=== PATIENT | male | born 1960 | race Caucasian/White ===

== ENCOUNTER 2018-06-04 13:56 | Inpatient (IN) | payer OTHER ==
[~2018-06-04] VITALS: Ht 175.3 cm; Wt 108.9 kg
[~2018-06-04 13:56] MED LIST: COLCHICINE 0.60.6 M1 PO; INDOMETHACIN 2525 MG PO; INDOMETHACIN 5050 M1 PO; LISINOPRIL10 MG PO; MEDROL DOSPAK21 TA1 PO; MEDROLDOSEPACK PO; NOHOMEMEDICATIONS; PERCOCET 5-3251 EACH PO; ULTRAM 50MG TAB50 MG PO
[2018-06-04 14:05] VITALS: BP 141/98
[2018-06-04] MEDS ORDERED: HYDROCHLOROTH12.5 M1 PO (14:08)
[2018-06-04 14:21] LABS: ABSOLUTE BASOPHILS 0.1 thou/uL (0.0-0.2); ABSOLUTE EOSINOPHILS 0.1 thou/uL (0.0-0.7); ABSOLUTE LYMPHOCYTES 3.3 thou/uL (0.8-5.3); ABSOLUTE MONOCYTES 0.8 thou/uL (0.0-1.2); ABSOLUTE NEUTROPHILS 3.4 thou/uL (1.6-8.1); BASOPHILS 1.2 %; EOSINOPHILS 1.2 %; HEMATOCRIT 52.7 % (42.0-52.0); HEMOGLOBIN 17.8 gm/dL (14.0-18.0); LYMPHOCYTES 42.7 %; MCH 30.4 pg (26.0-34.0); MCHC 33.8 g/dL (28.0-37.0); MCV 89.9 fL (80.0-100.0); MONOCYTES 10.7 %; MPV 8.7 fl. (7.2-11.1); NUCLEATED RBCS 0 /100WBC; PLATELET COUNT* 215 thou/uL (150-400); POLYS 44.2 %; RBC 5.87 mil/uL (4.50-6.00); WBC 7.7 thou/uL (4.0-11.0)
--- NOTE | 2018-06-04 14:24 | NUR ---
PT INSTRUCTED ON TRYING THE VALSALVA WITH NO SUCCESS.
[2018-06-04 14:30] LABS: ANION GAP 12 mmol/L (7-16); BUN 29 mg/dL (7-18); CALCIUM 9.2 mg/dL (8.5-10.1); CHLORIDE 99 mmol/L (98-107); CO2 25 mmol/L (21-32); CREATININE 1.6 mg/dL (0.6-1.3); GLUCOSE 114 mg/dL (70-99); POTASSIUM 4.5 mmol/L (3.5-5.1); SODIUM 136 mmol/L (136-145)
[2018-06-04 14:35] LABS: APTT 28.9 Seconds (25.0-31.3); INR 1.1; PROTIME 10.5 Seconds (9.20-11.50)
[2018-06-04] MEDS ORDERED: NORVASC5 MG PO (14:35)
[2018-06-04 14:51] LABS: ALBUMIN 4.4 g/dL (3.4-5.0); ALKALINE PHOSPHATASE 70 U/L (46-116); CK-MB MASS 0.5 ng/mL (<0.5-3.6); LIPASE 217 U/L (73-393); MAGNESIUM 1.8 mg/dL (1.8-2.4); NT-PRO BRAIN NAT PEPTIDE 1535 pg/mL (<300); SGOT 22 U/L (15-37); SGPT 36 U/L (30-65); TOTAL BILIRUBIN 1.4 mg/dL (<0.1-1.0); TOTAL PROTEIN 8.3 g/dL (6.4-8.2); TROPONIN-I LEVEL <0.06 ng/mL (<0.06)
[2018-06-04 14:59] VITALS: BP 149/92
[2018-06-04 15:20] VITALS: BP 144/82
--- NOTE | 2018-06-04 16:51 | EKG ---
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: ANGEL : 1960 Requested By: Jared Nichole Order Number: [id number] MD: Addison Estrada Measurements Intervals [place] Rate: 176 P: [place]: QRS: -38 QRSD: 93 T: 37 QT: 288 QTc: 493 Interpretive Statements Atrial fibrillation with rapid V-rate Left axis deviation Low voltage, extremity leads No previous ECG available for comparison Electronically Signed On 06-04-2018 16:50:42 CDT by Addison Estrada [email or web address] <ELECTRONICALLY SIGNED> By: Addison Estrada MD, [facility] 06/04/18 1650 1402 1402 Addison Estrada MD, [facility] /EPI
--- NOTE | 2018-06-04 17:47 | NUR ---
PT ADMITTED TO ROOM 224 VIA CART FROM ED AT APPROXIMATELY 1520 WITH AFIB RVR. REPORT RECEIVED FROM FABIANA LANG. PT ORIENTED TO ROOM AND CALL LIGHT. PT AND SON AT BEDSIDE WITH PT. ADMISSION ASSESSMENT AND HISTORY COMPLETED. REFER TO CHARTING. PT SCREENED NEGATIVE FOR SEPSIS. FALL AGREEMENT SIGNED. PT HAS CARDIZEM INFUSING AT 10ML/HR. RATE BETWEEN 90-110. BLOOD PRESSURE STABLE. PT STARTED ON RHYTHMOL AND XARELTO PER DR CALVO. POSSIBLE SOO/CV IN AM. PT A&0X4, DENIES ANY PAIN OR SHORTNESS OF BREATH. 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 ON RA SAT UPPER 90'S. PT UP SBA TO BATHROOM. MEDICATIONS PER DEC. PT REPOSITIONS SELF. HOURLY ROUNDING OBSERVED. BED IN LOW POSITION. CALL LIGHT WITHIN REACH. WILL CONTINUE PLAN OF CARE.
[2018-06-04 19:40] VITALS: BP 129/80
[2018-06-05] VITALS (18 sets, daily range): BP systolic 84–143; BP diastolic 48–97
--- NOTE | 2018-06-05 06:36 | NUR ---
ASSUMED CARE OF PT AT 1900. PT IS ALERT AND ORIENTED. VSS. PERRLA. NO COMPLAINTS OF PAIN. UP AD NELLIE. PT IS IN A FIB ON THE TELEMETRY. PT IS ON 10 MG/HR OF CARDIZEM. PT IS SLEEPING QUIETLY IN BED. RESPIRATIONS ARE EVEN AND NONLABORED. WILL CONTINUE TO MONITOR PT.
--- NOTE | 2018-06-05 09:00 | NUR ---
ASSUMED CARE OF PT AT 0730. PT RESTING IN BED. SON AT BEDSIDE. PT A&0X4, DENIES ANY PAIN OR SHORTNESS OF BREATH AT THIS TIME. PT STATES HE IS ANXIOUS AND NERVOUS ABOUT POSSIBLE CARDIOVERSION TODAY. 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 ON RA SAT UPPER 90'S. PT UP AD NELLIE IN ROOM. CARDIZEM INFUSING AT 10ML/HR. BLOOD PRESSURE STABLE. HEART RATE BELOW 100. PT GOAL FOR TODAY IS TO CONVERT TO SR OR SOO/CARDIOVERSION THIS AFTERNOON. AM ASSESSMENT CHARTED. MEDICATIONS PER DEC. PT REPOSITIONS SELF. HOURLY ROUNDING OBSERVED. BED IN LOW POSITION. CALL LIGHT WITHIN REACH. WILL CONTINUE PLAN OF CARE.
--- NOTE | 2018-06-05 12:09 | EKG ---
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: : 1960 Requested By: Edwin Allen Order Number: [id number] Jennifer MD: Manpreet Calhoun Measurements Intervals [place] Rate: 99 P: [place]: QRS: -8 QRSD: 151 T: 27 QT: 353 QTc: 453 Interpretive Statements Atrial fibrillation low voltage Nonspecific intraventricular conduction delay Compared to ECG 06/04/2018 14:02:55 rate slowed Electronically Signed On 06-05-2018 12:09:00 CDT by Manpreet Calhoun [email or web address] <ELECTRONICALLY SIGNED> By: Manpreet Calhoun MD, [facility] 06/05/18 1209 1111 1111 Manpreet Calhoun MD, [facility] /EPI
--- NOTE | 2018-06-05 13:53 | NUR ---
MET WITH PT AND TO DISCUSS HOME SITUATION/DC PLANNING. PT LIVES WITH . 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 USES NO EQUIPMENT. TO HAVE SOO/CARDIOVERSION TODAY. PT DENIES DC NEEDS. WILL FOLLOW
--- NOTE | 2018-06-05 15:47 | NUR ---
PT TRANSITIONED TO PO CARDIZEM. REFER TO EMAR. CARDIOLOGY HERE TO SEE PT AND PLAN FOR SOO/CARDIOVERSION THIS AFTERNOON. PT FAMILY HAS MANY QUESTIONS REGARDING SOO/CARDIOVERSION. EDUCATION GIVEN TO PT. CARDIOLOGY NOTIFIED AND DR KOEHLER HERE TO SPEAK WITH FAMILY AND ANSWER ALL QUESTIONS/CONCERNS. CONSENT SIGNED AND PLACED IN FRONT OF CHART. PT DOWN FOR SOO/CARDIOVERSION AT APPROXIMATELY 1500.
--- NOTE | 2018-06-05 16:52 | TEE ---
[place] [address] TRANSESOPHAGEAL ECHOCARDIOGRAM Name: ROSHNI FERNANDEZ Room: [address] IN [facility]#: [id number] Admission: 06/04/18 Attend Phys: Edwin Allen Discharge: Date of : 56 Date of Service: 06/05/18 1652 Report #: [id number] THIS REPORT FOR: //name// APPROVED REPORT Study performed: 06/05/2018 14:48:02 EXAM: Transesophageal Echocardiogram Patient Location: In-Patient Room #: [facility] Status: routine BSA: 2.28 HR: 117 bpm BP: 143/89 mmHg Rhythm: Atrial Fibrillation Indications Atrial Fibrillation Echo Enhancing Agent Indication: Rule out Shunt Agent(s) / Amount(s) Used: Agitated Saline 20 cc Procedure After obtaining informed consent, patient underwent transesophageal echo in the Facility Assistant Holding. Type of Sedation : Conscious Sedation Sedation was administered by Valerie Fagan RN. Sedation start time: 1500 Case end Time: 1527 Sedation was achieved intravenously with: Versed (6) Fentanyl (100) Transesophageal probe was inserted and advanced into esophagus without difficulty by Manpreet Calhoun MD, FACC. Echo enhancement indication: R/O Septal defect. Echo enhancement agent administered: Agitated Saline The SOO was performed without complications. Synchronized Cardioversion attempted: Successful Synchronized Cardioversion acheived with 300 Joules after 1 attempt(s). Rhythm following Synchronized Cardioversion: Normal Sinus Rhythm Throughout the procedure, the blood pressure, pulse oximetry, cardiac rhythm, and rate were monitored. The patient tolerated the procedure without adverse effects. Recovery from conscious sedation was uneventful [place] [address] TRANSESOPHAGEAL ECHOCARDIOGRAM Name: ROSHNI FERNANDEZ Room: [address]#: [id number] Admission: 06/04/18 Attend Phys: Edwin Allen Discharge: Date of : 56 Date of Service: 06/05/18 1652 Report #: [id number] Left Ventricle The left ventricle is normal size. There is normal LV segmental wall motion. There is normal left ventricular wall thickness. Left ventricular systolic function is normal. The left ventricular ejection fraction is within the normal range. LVEF is 50-55%. Right Ventricle The right ventricle is normal size. The right ventricular systolic function is normal. Atria Left atrium is mildly dilated. No thrombus is visualized in the left atrium or appendage. Interatrial septum is intact without evidence of ASD or PFO. The right atrium size is normal. Aortic Valve The aortic valve is normal in structure. No aortic regurgitation is present. There is no aortic valvular stenosis. Mitral Valve The mitral valve is normal in structure. Mild mitral regurgitation. No evidence of mitral valve stenosis. Tricuspid Valve The tricuspid valve is normal in structure. There is no tricuspid valve regurgitation noted. Pulmonic Valve The pulmonary valve is normal in structure. There is no pulmonic valvular regurgitation. Great Vessels The aortic root is normal in size. Pericardium There is no pericardial effusion. <Conclusion> LVEF is 50-55%. Left atrium is mildly dilated. No thrombus is visualized in the [place] [address] TRANSESOPHAGEAL ECHOCARDIOGRAM Name: ROSHNI FERNANDEZ Room: [address] IN .R.#: [id number] Admission: 06/04/18 Attend Phys: Edwin Allen Discharge: Date of : 56 Date of Service: 06/05/181651 Report #: [id number] Mild mitral regurgitation. successful cardioversion of atrial fibrillation to sinus rhythm <ELECTRONICALLY SIGNED> By: Manpreet Calhoun MD, FACC 06/05/181651 51 51 Manpreet Calhoun MD, FACC /INF
--- NOTE | 2018-06-05 17:30 | NUR ---
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 RATE IN THE 60'S. PT SLEEPY UPON ARRIVAL BACK TO UNIT, BUT EASILY AROUSABLE. BLOOD PRESSURE CHARTED. 90'S/50'S. KEREN MARTINES'Nabil. REFER TO EMAR. FAMILY AT BEDSIDE SAT THIS TIME. PT DENIES ANY PAIN OR SHORTNESS OF BREATH. PROGRESSING TOWARDS GOALS. POSSIBLE DISCHARGE HOME TOMORROW 06/06. MEDICATIONS PER DEC. PT REPOSITIONS SELF. HOURLY ROUNDING OBSERVED. BED IN LOW POSITION. CALL LIGHT WITHIN REACH. WILL CONTINUE PLAN OF CARE.
--- NOTE | 2018-06-05 22:52 | NUR ---
ASSUMED CARE OF PT AT 1900. PT IS ALERT AND ORIENTED. VSS. PERRLA. NO COMPLAINTS OF PAIN. STEADY GAIT. UP AD NELLIE. PT IS IN SINUS RYTHM ON THE TELEMETRY. PT IS RESTING COMFORTABLY IN BED. RESPIRATIONS ARE EVEN AND NONLABORED. WILL CONTINUE TO ASKID4E PT.
[2018-06-06] VITALS: BP 98/65; BP 99/66
[2018-06-06 08:15] VITALS: BP 115/69
--- NOTE | 2018-06-06 10:59 | NUR ---
ASSUMED PT CARE AT 0730, FULL ASSESMENT DONE CHARTED. PT A/O X4, C/O SOME ARTHRITIS PAIN, REQUESTING TYLENOL. DENIES CHEST PAIN, VSS, SR/BBB ON THE MONITOR. CARDIOLOGY S/O POSSIBLE DC TODAY. WILL CONTINUE WITH PLAN OF CARE.
[2018-06-06 12:01] VITALS: BP 142/88
[2018-06-06] MEDS ORDERED: XARELTO20 MG PO (12:34)
[2018-06-06] MEDS ORDERED: PROPAFENONE 15150 MG PO (12:35)
[2018-06-06 12:36] VITALS: BP 142/88
--- NOTE | 2018-06-06 13:38 | NUR ---
pt discharged home. was given discharge education and scripts, pt and verbalized understanding of education. pt left unit with staff at approx 1335 with all belongings.
--- NOTE | 2018-06-12 12:53 | CON ---
[address] [address] CONSULTATION Name: ROSHNI FERNANDEZ Room: [address] IN .R.#: [id number] Admission: 06/04/18 Attend Phys: Nabil Head Discharge: 06/06/18 Date of : 56 Report #: [id number] THIS REPORT FOR: //name// CC: Manpreet Allen DATE OF SERVICE: 06/04/2018 INPATIENT CONSULTATION PRIMARY CARE PHYSICIAN: Manpreet Carmen M.D. CHIEF COMPLAINT: Weakness, fatigue and shortness of breath. HISTORY OF PRESENT ILLNESS: The patient is a 58-year-old man who presented with atrial fibrillation with heart rates in the 160s to 170s in the Emergency Room. He had been having 3-7 days of increasing shortness of breath and occasional chest pressure. The chest pressure occurs with activity and resolves in 5 minutes with rest. He was placed on IV Cardizem and still remains in atrial fibrillation, with heart rates in the 120s to 130s. He denies any sudden onset of symptoms, but progressively has been short of breath over the last several days. He denies syncope or presyncope. He has no neuro symptoms of visual changes, slurred speech or extremity numbness or weakness. He denies syncope or near syncope. There is no record of seizures. PAST MEDICAL HISTORY: He has a long-standing history of high blood pressure, but it has been fairly well controlled with moderate therapy. He also has a history of gout. SOCIAL HISTORY: Nonsmoker and rarely drinks. FAMILY HISTORY: Positive for coronary artery disease. Father had bypass surgery. MEDICATIONS: Medications at home include the following: Lisinopril, colchicine and hydrochlorothiazide. The lisinopril dose of 10 mg daily and hydrochlorothiazide 12.5 mg daily. ALLERGIES: He has [place] [address] CONSULTATION Name: ROSHNI FERNANDEZ Tete Room: [address]#: [id number] Admission: 06/04/18 Attend Phys: Nabil Head Discharge: 06/06/18 Date of : 56 Report #: [id number] REVIEW OF SYSTEMS: GASTROINTESTINAL: No abdominal pain, nausea, vomiting, hematemesis or melena. GENITOURINARY: No dysuria or hematuria. NEUROLOGIC: As above. No headaches, blurry vision, slurred speech or visual changes. SKIN: No rashes. MUSCULOSKELETAL: Edema. CARDIOVASCULAR: Positive chest discomfort. Positive dyspnea with exertion. Positive palpitations. SKIN: No rashes. PHYSICAL EXAMINATION: VITAL SIGNS: Blood pressure on presentation 141/98, pulse is 100% on room air and respiratory rate is 18. Weight is 250 pounds. GENERAL: This is a pleasant, moderately obese, middle-aged male, who is alert, oriented, in no apparent distress. NECK: Supple. No jugular venous distention. CARDIOVASCULAR EXAMINATION: Irregular, tachycardic. LUNGS: Clear to auscultation. ABDOMEN: Soft, nontender. EXTREMITIES: There is trace amount of pretibial edema. NEUROLOGIC: There are no focal deficits. PSYCHIATRIC: The patient has appropriate mood and affect. DIAGNOSTIC DATA: Electrocardiogram demonstrates atrial fibrillation with rapid ventricular response and nonspecific ST-segment abnormalities. LABORATORY DATA: Sodium is 136, potassium is 4.5, chloride 99, CO2 of 25, BUN is 29, creatinine is 1.6 and GFR is 44. AST is 22, ALT is 36. Troponin I is 0.06. NT-proBNP is 1535. Lipase 217. Hemoglobin 17.8, white blood cell count 7.7 and platelet count is 215,000. INR is 1.1. Chest x-ray shows heart size upper limits of normal. IMPRESSION AND PLAN: 1. Paroxysmal atrial fibrillation. He presented to his primary care doctor's office with increasing shortness of breath and was noted to be in atrial fibrillation. On IV Cardizem in the Emergency Room, he has not converted. I will add oral antiarrhythmic therapy with propafenone on top of IV Cardizem. If he does not convert by the morning time, we will plan for a SOO-guided cardioversion. For the time being, as he likely will require cardioversion, we will start him on Xarelto 20 mg daily, while we ascertain his cardiovascular stroke risk. 2. Chest discomfort. He should probably have an outpatient [place] [address] CONSULTATION Name: ROSHNI FERNANDEZ Room: [address]#: [id number] Admission: 06/04/18 Attend Phys: Nabil Head Discharge: 06/06/18 Date of : 56 Report #: [id number] point given his family history of heart disease. 3. Hypertension. We may need to switch him from oral lisinopril to Cardizem. <ELECTRONICALLY SIGNED> By: Addison Estrada MD, FACC 06/12/18 1253 1509 0421Addison Estrada MD, FACC /nt
== END 2018-06-06 13:35 | disposition home or self-care (01) | DRG 683 ==
LOC: M.ERS 13:56 → M.TBA-ER 14:40 → M.2W 14:40
PROVIDERS: Family Medicine; ADMIT Internal Medicine
PROC: B24BZZ4 Ultrasonography of Heart with Aorta, Transesophageal (ICD-10-PCS; principal; 2018-06-05)
PROC: 5A2204Z Restoration of Cardiac Rhythm, Single (ICD-10-PCS; principal; 2018-06-05)
DX: N17.9 Acute kidney failure, unspecified (principal); D68.59 Other primary thrombophilia; I48.0 Paroxysmal atrial fibrillation; I12.9 Hypertensive chronic kidney disease with stage 1 through stage 4 chronic kidney disease, or unspecified chronic kidney disease; N18.3 Chronic kidney disease, stage 3 (moderate); M10.9 Gout, unspecified; E78.5 Hyperlipidemia, unspecified; E66.9 Obesity, unspecified; Z68.35 Body mass index [BMI] 35.0-35.9, adult; Z79.899 Other long term (current) drug therapy; Z82.49 Family history of ischemic heart disease and other diseases of the circulatory system; Z83.3 Family history of diabetes mellitus

== ENCOUNTER → 2018-09-03 | Outpatient (CLI) | payer OTHER ==
[~2018-09-03] VITALS: Ht 175.3 cm; Wt 108.9 kg
[2018-09-03] VITALS (8 sets, daily range): BP systolic 120–142; BP diastolic 66–89
[~2018-09-03] MED LIST changes: +ASPIR 8181 MG PO; +ATORVASTATIN CA40 MG PO; +BRILINTA90 MG PO; +CARTIA XT180 M1 PO; +HYDROCHLOROTH12.5 M1 PO; +NORVASC5 MG PO; +PROPAFENONE 15150 MG PO; +XARELTO20 MG PO
[2018-09-03 14:25] LABS: HEMATOCRIT 45.2 % (42.0-52.0); HEMOGLOBIN 15.3 gm/dL (14.0-18.0); MCH 30.9 pg (26.0-34.0); MCHC 33.8 g/dL (28.0-37.0); MCV 91.5 fL (80.0-100.0); MPV 8.1 fl. (7.2-11.1); RBC 4.94 mil/uL (4.50-6.00); WBC 7.7 thou/uL (4.0-11.0)
[2018-09-03 14:30] LABS: ANION GAP 11 mmol/L (7-16); APTT 31.6 Seconds (25.0-31.3); BUN 24 mg/dL (7-18); CALCIUM 9.4 mg/dL (8.5-10.1); CHLORIDE 101 mmol/L (98-107); CO2 25 mmol/L (21-32); CREATININE 1.7 mg/dL (0.6-1.3); GLUCOSE 108 mg/dL (70-99); POTASSIUM 4.8 mmol/L (3.5-5.1); PROTIME 10.5 Seconds (9.20-11.50); SODIUM 137 mmol/L (136-145)
[2018-09-03 14:35] LABS: ALBUMIN 3.9 g/dL (3.4-5.0); ALKALINE PHOSPHATASE 98 U/L (46-116); CHOLESTEROL 151 mg/dL (<200); HDL CHOLESTEROL 30 mg/dL (>40); LDL CHOLESTEROL 74 mg/dL (<100); SGOT 15 U/L (15-37); SGPT 23 U/L (30-65); TOTAL PROTEIN 8.2 g/dL (6.4-8.2); TRIGLYCERIDE 237 mg/dL (<150); VLDL 47 mg/dL (<40)
[2018-09-03 14:36] LABS: SERUM ASSESSMENT Clear
--- NOTE | 2018-09-03 16:31 | EKG ---
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: [facility] : 1960 Requested By: Addison Estrada Order Number: [id number] Reading MD: Addison Estrada Measurements Intervals [place] Rate: 60 P: 14 MS: 199 QRS: -34 QRSD: 99 T: 17 QT: 422 QTc: 422 Interpretive Statements Sinus rhythm Probable inferior infarct, old Compared to ECG 06/05/2018 11:11:52 Myocardial infarct finding now present Atrial fibrillation no longer present Intraventricular conduction delay no longer present Electronically Signed On 09-03-2018 16:31:25 [place] by Addison Estrada [email or web address] <ELECTRONICALLY SIGNED> By: Addison Estrada MD, FAC 09/03/18 1631 1441 1441 Addison Estrada MD, [facility] /EPI
--- NOTE | 2018-09-05 16:17 | CARD ---
[address] [address] CARDIAC CATH REPORT Name: ROSHNI FERNANDEZ Room: [facility]#: [id number] Admission: 09/03/18 Attend Phys: Addison Estrada MD Discharge: Date of : 56 Report #: [id number] THIS REPORT FOR: //name// APPROVED REPORT Study performed: 09/03/2018 18:04:50 Patient Details Patient Status: Out-Patient Room #: The patient is a 58 year-old male Event Personnel Addison Estrada Energy Risk Management Analyst, Velma Mo RN Glove Maker, Barrera Correa (R) Monitor, Tejal Mason MIXER CRANE OPERATOR Scrub Procedures Performed Left Heart Cath w/or w/o Coronaries Procedure Narrative A Slender Glidesheath sheath was inserted into the right radial artery. Coronary angiography was performed using coronary diagnostic catheters. The right coronary system was accessed and visualized with a Diagnostic DCR: [place] 4.0 5fr catheter. The left coronary system was accessed and visualized with a Diagnostic JL 3.5 6fr catheter. The left ventricle was accessed and visualized with a Diagnostic Angled pig catheter. Left ventricular/Aortic Valve gradient assessed via catheter pullback. Closure device was deployed with a Fr Vasc-Band Lng 27cm. Intraoperative Conscious Sedation Sedation start time: 18:35 Case end Time: 19:08 Fentanyl 25 mcg Versed 2 mg Fluoro Time: 13.1 minutes Dose: DAP 455254 cGycm2 2225 mGy Contrast Type and Amount: Visipaque 290 ml Coronary Angiography The patient's coronary anatomy is co- dominant. Diagnostic Cath Left Main mild 10% taper distally LAD proximal 70-75 % stenosis, long mid 80%, [place] [address] CARDIAC CATH REPORT Name: REBECCAROSHNI Tete Room: [facility]#: [id number] Admission: 09/03/18 Attend Phys: Addison Estrada MD Discharge: Date of : 56 Report #: [id number] vessel, diffuse 70-90% Diagonal 1 medium sized ostial 90% Diagonal 2 proximal 90% Circumflex long 70%mid body stenosis OM1 subtotally occluded L PDA 40-50% collaterals given to rca pda Right Coronary proximally occluded R PDA small Left Ventriculography The left ventricle is normal in size with normal contractility. The left ventricular ejection fraction is estimated to be 50-55%. Left ventricular wall motion abnormalities are present. There is no mitral insufficiency. inferior wall at the base is mildly hypokinetic Hemodynamics The aortic pressure is 103/65 mmHg with a mean of 81 mmHg. The left ventricular pressure is 95/0 mmHg with a mean of mmHg. The left ventricular end diastolic pressure is 5 mmHg. Conclusion 1. severe multivessel CAD 2. chronically occluded but partially collateralized RCA 3. normal LV function Recommendations Aggressive Medical Therapy CABG <ELECTRONICALLY SIGNED> By: Addison Estrada MD, FACC 09/05/181615 15 15Addison Estrada MD, FACC /INF
== END | disposition home or self-care (01) ==
LOC: M.CL 13:10
PROVIDERS: Internal Medicine Cardiovascular Disease
DX: I25.10 Atherosclerotic heart disease of native coronary artery without angina pectoris (principal); I25.82 Chronic total occlusion of coronary artery; I10 Essential (primary) hypertension; E78.5 Hyperlipidemia, unspecified; M10.9 Gout, unspecified; I48.91 Unspecified atrial fibrillation; Z79.82 Long term (current) use of aspirin; Z95.1 Presence of aortocoronary bypass graft; Z79.899 Other long term (current) drug therapy; Z79.01 Long term (current) use of anticoagulants

== ENCOUNTER 2018-10-02 08:55 | Observation (INO) | payer OTHER ==
[~2018-10-02] VITALS: Ht 175.3 cm; Wt 108.9 kg
[2018-10-02] VITALS (17 sets, daily range): BP systolic 101–159; BP diastolic 49–87
[~2018-10-02 08:55] MED LIST changes: -ASPIR 8181 MG PO; -ATORVASTATIN CA40 MG PO; -BRILINTA90 MG PO; -CARTIA XT180 M1 PO
[2018-10-02] MEDS ORDERED: ATORVASTATIN CA40 MG PO (09:28)
[2018-10-02] MEDS ORDERED: CARTIA XT180 M1 PO (09:29)
[2018-10-02 09:35] LABS: ABSOLUTE BASOPHILS 0.1 thou/uL (0.0-0.2); ABSOLUTE EOSINOPHILS 0.2 thou/uL (0.0-0.7); ABSOLUTE LYMPHOCYTES 2.3 thou/uL (0.8-5.3); ABSOLUTE MONOCYTES 0.7 thou/uL (0.0-1.2); ABSOLUTE NEUTROPHILS 4.5 thou/uL (1.6-8.1); BASOPHILS 1.3 %; HEMATOCRIT 48.7 % (42.0-52.0); HEMOGLOBIN 16.6 gm/dL (14.0-18.0); LYMPHOCYTES 29.8 %; MCHC 34.1 g/dL (28.0-37.0); MCV 93.9 fL (80.0-100.0); MONOCYTES 9.5 %; MPV 8.6 fl. (7.2-11.1); NUCLEATED RBCS 0 /100WBC; PLATELET COUNT* 283 thou/uL (150-400); POLYS 57.4 %; RBC 5.19 mil/uL (4.50-6.00); RDW-CV 13.4 % (10.5-14.5); WBC 7.9 thou/uL (4.0-11.0)
[2018-10-02 09:41] LABS: ANION GAP 10 mmol/L (7-16); BUN 29 mg/dL (7-18); CALCIUM 9.6 mg/dL (8.5-10.1); CHLORIDE 101 mmol/L (98-107); CO2 26 mmol/L (21-32); CREATININE 1.7 mg/dL (0.6-1.3); GLUCOSE 123 mg/dL (70-99); POTASSIUM 4.7 mmol/L (3.5-5.1); SODIUM 137 mmol/L (136-145)
[2018-10-02 09:46] LABS: ALBUMIN 4.2 g/dL (3.4-5.0); ALKALINE PHOSPHATASE 102 U/L (46-116); CHOLESTEROL 153 mg/dL (<200); HDL CHOLESTEROL 29 mg/dL (>40); LDL CHOLESTEROL 71 mg/dL (<100); SGOT 16 U/L (15-37); SGPT 27 U/L (30-65); TC:HDL 5.3 Ratio (Not establshd); TOTAL BILIRUBIN 0.7 mg/dL (<0.1-1.0); TOTAL PROTEIN 8.8 g/dL (6.4-8.2); TRIGLYCERIDE 267 mg/dL (<150); VLDL 53 mg/dL (<40)
[2018-10-02 09:49] LABS: SERUM ASSESSMENT Clear
[2018-10-02 09:51] LABS: APTT 31.7 Seconds (25.0-31.3); PROTIME 10.6 Seconds (9.20-11.50)
--- NOTE | 2018-10-02 11:46 | EKG ---
[place] [address] ELECTROCARDIOGRAM REPORT Name: ROSHNI FERNANDEZ Room: [facility]#: [id number] Admission: 10/02/18 Attend Phys: Manpreet Calhoun MD, F Discharge: Date of : 56 Report #: [id number] THIS REPORT FOR: //name// [facility] Test Date: 2018-10-02 Test Time: 09:30:22 Pat Name: ROSHNI EVAReanna Department: Room: Gender: Retinal Angiographer: [facility] : 1960 Requested By: Manpreet Calhoun Order Number: [id number] Jennifer MD: Manpreet Calhoun Measurements Intervals [place] Rate: 65 P: 5 [place]: 198 QRS: -37 QRSD: 107 T: 22 QT: 400 QTc: 416 Interpretive Statements Sinus rhythm early transition Left axis deviation Low voltage, extremity leads Compared to ECG 09/03/2018 14:41:13 no change Electronically Signed On 10-02-2018 11:46:10 BONE DENSITY TECHNICIAN by Manpreet Calhoun [email or web address] <ELECTRONICALLY SIGNED> By: Manpreet Calhoun MD, [facility] 10/02/18 1146 9 9 Manpreet Calhoun MD, [facility] /EPI
--- NOTE | 2018-10-02 13:33 | H ---
[place] [address] HISTORY AND PHYSICAL Name: ROSHNI FERNANDEZ Room: [address] Jarett Taylor#: [id number] Admission: 10/02/18 Attend Phys: Manpreet Calhoun MD, F Discharge: Date of : 56 Report #: [id number] THIS REPORT FOR: //name// CC: Manpreet Carmen DATE OF SERVICE: 10/02/2018 HISTORY OF PRESENT ILLNESS: The patient is a 58-year-old white male who was brought to the outpatient department to perform cardiac catheterization. The patient has a long history of hypertension and hyperlipidemia. He presented in May complaining of not feeling well. He had had some chest tightness, shortness of breath and fatigue. He would see his primary care physician and was noted to be in atrial fibrillation. He was sent over to [facility] and admitted. He was seen by my partner, Dr. Addison Estrada. I performed a SOO. The SOO showed an ejection fraction of 55%, left atrial enlargement, no thrombus, only mild mitral regurgitation. He was then converted to sinus rhythm. He was then taken off of amlodipine and switched to Cardizem. He was started on propafenone and anticoagulated with Xarelto. He was discharged and returned to see my partner, Dr. Estrada in the Cardiology Clinic. He remained in sinus rhythm and had no bleeding on Xarelto. Because of risk factors and complained of chest tightness, he did undergo a nuclear stress test. This was performed here at [facility]. Results were obtained using Joinityan. Images showed ejection fraction of 53%. There was a reversible distal anteroapical defect consistent with ischemia. Dr. Estrada then performed an outpatient cardiac catheterization on 09/03 from the right radial artery. Results showed normal left ventricular function with an ejection fraction of 55%. There was a long 75% stenosis of the mid LAD. The circumflex gave off a medium sized first marginal branch that had an ostial 90% stenosis. The right coronary artery was occluded and filled by collaterals. He is felt to have severe multivessel coronary artery disease, is recommended he be considered for coronary artery bypass surgery. The patient was actually referred to Dr. Cintron. However, the patient was discharged and decided he wanted to consider other options to bypass surgery. I reviewed his cath films for a second opinion. I recommended he consider coronary intervention percutaneously. The patient notes that since his cardioversion, he has had no further chest pain, shortness of breath, palpitations or bleeding. PAST MEDICAL HISTORY: He has had no surgical procedures. He has a history of hypertension, hyperlipidemia and has a history of gout. MEDICATIONS: His current medication includes Lipitor, diltiazem, lisinopril and Xarelto, they stopped it 2 days ago. He has been on Rythmol 150 mg 3 [place] [address] HISTORY AND PHYSICAL Name: ROSHNI FERNANDEZ Room: [address] Jarett Taylor#: [id number] Admission: 10/02/18 Attend Phys: Manpreet Calhoun MD, F Discharge: Date of : 56 Report #: [id number] ALLERGIES: He has no known drug allergies. FAMILY HISTORY: His father had coronary artery bypass surgery. SOCIAL HISTORY: He is . He and his live in [place]. 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 No smoking. No alcohol abuse. REVIEW OF SYSTEMS: He has a history of obesity previously weighed over 300 pounds and now weighs 237 pounds. No history of snoring, peptic ulcer disease, liver disease, kidney disease, cancer, psychiatric illness or chronic skin condition. He does note that he was exposed to asbestos at [facility]. PHYSICAL EXAMINATION: GENERAL: Revealed a middle-aged male, appeared in no distress. VITAL SIGNS: Blood pressure 140/80, pulse 70, he is afebrile. HEENT: He is anicteric. Conjunctivae pink. Mucous membranes are moist. NECK: Veins do not appear distended. No carotid bruits. Neck supple. CHEST: Clear to auscultation. CARDIOVASCULAR: Regular rate and rhythm. ABDOMEN: Obese. EXTREMITIES: Had no edema. Posterior tibial pulse 2+ bilaterally. SKIN: Warm and dry. NEUROLOGIC: Nonfocal. LABORATORY DATA: Sodium 137, BUN 29, creatinine 1.7 and glucose 123. Liver function studies are normal. Cholesterol 153, triglyceride 267, HDL 29 and LDL 71. White blood cell count 7.9 and hemoglobin 16.6. IMPRESSION AND RECOMMENDATIONS: 1. Coronary artery disease. The patient has 3-vessel coronary artery disease and normal left ventricular function. The stenosis in the LAD is in the mid LAD. I do believe his best option for long-term avoidance of morbidity and mortality is with multivessel bypass surgery. However, the patient would prefer coronary intervention. The right coronary artery is chronically occluded. The marginal branch of the circumflex has a significant stenosis, but would not be readily amenable to stenting because of its acute takeoff from the main circumflex. I would treat this medically. I therefore recommended stenting of the significant disease in the mid LAD. 2. Hypertension. The patient is on a calcium candis and LEO inhibitor. 3. Hyperlipidemia. The patient is on a statin drug. 4. Gout. 5. History of atrial fibrillation. No recurrences after starting Rythmol. 6. History of obesity. 7. Previous exposure to asbestos while working at [employer]. The patient did have a portable chest x-ray in May that showed normal heart size, [place] [address] HISTORY AND PHYSICAL Name: ROSHNI FERNANDEZ Room: [address]#: [id number] Admission: 10/02/18 Attend Phys: Manpreet Calhoun MD, F Discharge: Date of : 56 Report #: [id number] clear lung schreiber and no pleural plaques. If further concern, I would consider a CT scan of the chest. <ELECTRONICALLY SIGNED> By: Manpreet Calhoun MD, FACC 10/02/18 1333 1014 1122Dmartha Calhoun MD, FACC /nt
--- NOTE | 2018-10-02 14:02 | CARD ---
[address] [address] CARDIAC CATH REPORT Name: ROSHNI FERNANDEZ Tete Room: [address] Claudia#: [id number] Admission: 10/02/18 Attend Phys: Manpreet Calhoun MD, F Discharge: Date of : 56 Report #: [id number] THIS REPORT FOR: //name// APPROVED REPORT Study performed: 10/02/2018 09:06:45 Patient Details Patient Status: Out-Patient Room #: The patient is a 58 year-old male Event Personnel Manpreet Calhonu Transmission Supervisor, Nan Ruby RN Official Court Reporter, Leda Barreto RTR Monitor, Haris العراقي Scrjose martin, Selena Lugo RN Official Court Reporter Procedures Performed Art Access - R radial artery Left Heart Cath w/or w/o Coronaries [facility] w/wo Plasty Single LAD Indication Positive stress test, Chest pain, Cardiac catheterization in August revealed 3 vessel CAD and normal LV function. CABG was recommended. However, the pt preferred attempts at PTCA rather than CABG. The marginal branch did not appear to be readily amenable to stenting because of its steep angled takeoff from the circumflex. The RCA was chronically occluded. The plan was to perform stenting of the LAD only. Risk Factors Arterial Hypertension, Hypercholesterolemia, Coronary Artery Disease Previous Procedures/Diagnoses Previous Femoral Procedure Admission/Lab Medications/Medications given during procedure Heparin Unfract. Procedure Narrative The patient was brought electively to the Cardiac Catheterization Laboratory and was prepped and draped in a sterile manner. The right wrist was infiltrated with 2% Lidocaine subcutaneous anesthesia. A Slender Glidesheath sheath was inserted into the right radial artery. Coronary angiography was performed [place] [address] CARDIAC CATH REPORT Name: ROSHNI FERNANDEZ Room: [address]#: [id number] Admission: 10/02/18 Attend Phys: Manpreet Calhoun MD, F Discharge: Date of : 56 Report #: [id number] catheters. The left coronary system was accessed and visualized with a xblad3.5 catheter. Left ventricular/Aortic Valve gradient assessed via catheter pullback. Closure device was deployed with a 6 Fr Regular Vasband. The patient tolerated the procedure well and there were no complications associated with the procedure. There was no hematoma. 6 fr jr4 catheter used to cross the AV. Attempt to cannulate left main with 6 fr xblad4.5 guide catheter unsuccessful. Intraoperative Conscious Sedation Sedation start time: 1024 Case end Time: 1108 Fentanyl 25 mcg Versed 4 mg Fluoro Time: 8.4 minutes Dose: DAP 820287 cGycm2 80.8 mGy Contrast Type and Amount: Visipaque 225 ml Coronary Angiography The patient's coronary anatomy is co- dominant. Diagnostic Cath Left Main 0% stenosis LAD long 90% mid stenosis noted Diagonal 1 90% mid stenosis noted OM1 90% ostial stenosis noted L PDA 80% proximal stenosis noted Right Coronary Arteriogram of RCA not performed. Cardiac catheterization in August revealed that the RCA was chronically occluded and filled by collaterals Left Ventriculography Left Ventriculography was not performed. Hemodynamics The aortic pressure is 103/58 mmHg with a mean of 69 mmHg. The left ventricular pressure is 112/8 mmHg with a mean of mmHg. The left ventricular end diastolic pressure is 12 mmHg. There was no gradient across the aortic valve upon pullback. Pullback from the left ventricle to the aorta revealed no gradient across the aortic valve. PCI Technique Lesion Anticoagulation was achieved with Heparin. Patient was preloaded with Brillinta. Percutaneous coronary intervention was performed on the mid left anterior descending artery [place] [address] CARDIAC CATH REPORT Name: EVAReannaROSHNI Room: [address]#: [id number] Admission: 10/02/18 Attend Phys: Manpreet Calhoun MD, F Discharge: Date of : 56 Report #: [id number] prior to intervention was 90% with LALITHA 3 flow. A 6F XB LAD 3.5 Guide Catheter was used to engage the lm ostium. A BMW 190cm Interventional Guidewire was used to cross the lesion. BALLOON DILATION A Balloon catheter Mini Trek RX 2.0 X 15 was inserted and inflated up to 18.00atm for 19seconds. Repeat angiography revealed the following post-dilatation results: 70% stenosis. Additional Inflation: 18.00atm for 14seconds. STENT DEPLOYMENT A drug-eluting stent Xience Destiny 2.5X23mm was inserted and inflated up to 10.00atm for 14seconds. Repeat angiography revealed the following post-stent deployment results: 0% stenosis, but 70% proximal edge stenosis noted. A second 2.5 x 12 mm drug eluting stent was placed proximal to the first stent with minimal overlap between the 2 stents and inflated up to 13 mm Hg. Final arteriogram revealed no stenois of the stents, but step down from the stents to the distal lad beyond the stents. Final angiography reveals 0 % stenosis with LALITHA 3 flow. STENT DEPLOYMENT A drug-eluting stent Xience Destiny 2.5X12mm was inserted and inflated up to 9:00atm for 19seconds. Additional Inflation: 12:00atm for 14seconds. Additional Inflation: 12:00atm for 8seconds. Conclusion 1. successful placement of 2 drug eluting stents in the mid LAD Recommendations If patient has recurrent angina, consider CABG versus attepts at stenting of the circumflex and RCA Medications Administered Ticagrelor <ELECTRONICALLY SIGNED> By: Manpreet Calhoun MD, [facility] 10/02/18 1401 1401 1401Dmartha Calhoun MD, FAC /INF
--- NOTE | 2018-10-02 17:00 | NUR ---
PT ADMITTED AROUND 1300 POST CARDIAC CATH WITH STENT PLACEMENT. RT RADIAL ACCESS. PT ON OBSERVATION. PRESSURE RELEASED TO RT RADIAL ACCESS AND COVERED WITH GAUZE AND TEGADERM. PT HAS NO C/O PAIN. TELE SR-SB. PT ENCOURAGED TO DRINK ORAL FLUIDS. NO OTHER CONCERNS AT THIS TIME. CLWR. WCTM.
[2018-10-03] VITALS: BP 122/64
[2018-10-03 05:09] LABS: HEMATOCRIT 42.3 % (42.0-52.0); MCH 31.3 pg (26.0-34.0); MCHC 33.3 g/dL (28.0-37.0); MCV 93.8 fL (80.0-100.0); MPV 8.4 fl. (7.2-11.1); RBC 4.51 mil/uL (4.50-6.00); RDW-CV 13.3 % (10.5-14.5)
[2018-10-03 05:22] LABS: HEMOGLOBIN 14.1 gm/dL (14.0-18.0)
[2018-10-03 05:45] LABS: CREATININE 1.7 mg/dL (0.6-1.3); TROPONIN-I LEVEL <0.06 ng/mL (<0.06)
--- NOTE | 2018-10-03 07:49 | NUR ---
ASSUMED PT CARE @ 1930. a+oX4. RT RADIAL CATH SITE DRESSSING C/D/I. DENIES CHEST PAIN, N/V. SLEPT TRHOUGH NIGHT WIHTOUT DIFFICULTY. SB WITH A BBB. CALL LIGHT AT BEDSIDE. HOURLY ROUNDING FOR SAFETY.
[2018-10-03 08:17] VITALS: BP 128/67
[2018-10-03 10:31] VITALS: BP 122/58
[2018-10-03 10:33] VITALS: BP 122/58
[2018-10-03] MEDS ORDERED: BRILINTA90 MG PO (11:08)
[2018-10-03] MEDS ORDERED: ASPIR 8181 MG PO (11:09)
[2018-10-03 11:15] VITALS: BP 122/58
--- NOTE | 2018-10-03 11:50 | NUR ---
PT ALERT, ORIENTED AND VSS ON ROOM AIR. TELE TRACKING NSR. PT DENIES CP, SOA. RIGHT RADIAL CATH SITE CDI, APPROPRIATE NEUROVASC ASSESSMENT. PT EDUCATED ON SAFETY AND PLAN OF CARE. PLEASE SEE ASSESSMENT FOR ADDITIONAL INFORMATION. PT TO DC THIS SHIFT. WILL CONT TO MONITOR
--- NOTE | 2018-10-03 12:21 | NUR ---
PT DC HOME WITH FAMILY IN STABLE CONDITION AT APPROX 1205
--- NOTE | 2018-10-03 15:46 | EKG ---
[place] [address] ELECTROCARDIOGRAM REPORT Name: ROSHNI FERNANDEZ [address] [id number] Admission: 10/02/18 Attend Phys: Manpreet Calhoun MD, Discharge: 10/03/18 Date of : 56 Report #: [id number] THIS REPORT FOR: //name// [facility] Test Date: 2018-10-03 Test Time: 08:04:26 Pat Name: ROSHNI FERNANDEZ Department: Room: [address] Gender: M Gambling Monitor: : 1960 Requested By: Manpreet Calhoun Order Number: [id number] Jennifer MD: Manpreet Calhoun Measurements Intervals [place] Rate: 64 P: 25 ME: 208 QRS: -51 QRSD: 101 T: 6 QT: 380 QTc: 392 Interpretive Statements Sinus rhythm Borderline prolonged ME interval Inferior infarct, old Compared to ECG 10/02/2018 09:30:22 no change Electronically Signed On 10-03-2018 15:46:03 LOG DRIVER by Manpreet Calhoun [email or web address] <ELECTRONICALLY SIGNED> By: Manpreet Calhoun MD, [facility] 10/03/18 1546 0804 0804 Manpreet Calhoun MD, [facility] /EPI
== END 2018-10-03 12:05 | disposition home or self-care (01) ==
LOC: M.CL 08:55 → M.TBA-CV 12:51 → M.2W 12:51
PROVIDERS: ADMIT Internal Medicine Cardiovascular Disease
DX: I25.10 Atherosclerotic heart disease of native coronary artery without angina pectoris (principal); I10 Essential (primary) hypertension; E78.5 Hyperlipidemia, unspecified; I48.91 Unspecified atrial fibrillation; M10.9 Gout, unspecified; I34.0 Nonrheumatic mitral (valve) insufficiency; Z95.5 Presence of coronary angioplasty implant and graft; Z77.090 Contact with and (suspected) exposure to asbestos; Z79.899 Other long term (current) drug therapy

== ENCOUNTER 2019-08-11 10:37 | Observation (INO) | payer OTHER ==
[2019-08-11] VITALS (16 sets, daily range): BP systolic 107–141; BP diastolic 52–85
[~2019-08-11] VITALS: Ht 175.3 cm; Wt 109.0 kg
--- NOTE | ~2019-08-11 | H ---
[address] [address] HISTORY AND PHYSICAL Name: ROSHNI FERNANDEZ Room: [address] Jarett Taylor#: [id number] Admission: 08/11/19 Attend Phys: Taras Brown MD, Discharge: 08/12/19 Date of : 56 Report #: [id number] THIS REPORT FOR: //name// Please refer to the History and Physical performed in the physician's office. By: [facility]3Medical Records Staff ERNIE /IBAN
[~2019-08-11 10:37] MED LIST changes: +ASPIR 8181 MG PO; +ATORVASTATIN CA40 MG PO; +BRILINTA90 MG PO; +CARTIA XT180 M1 PO; +IMDUR 30 MG TAB30 M1 PO; +MICROZIDE12.5 MG PO; +NITROSTAT0.4 M1 SUBLING; +ULORIC80 MG PO
[2019-08-11 11:22] LABS: HEMATOCRIT 46.1 % (42.0-52.0); HEMOGLOBIN 15.9 gm/dL (14.0-18.0); MCH 32.1 pg (26.0-34.0); MCHC 34.5 g/dL (28.0-37.0); MCV 93.1 fL (80.0-100.0); MPV 8.3 fl. (7.2-11.1); RBC 4.95 mil/uL (4.50-6.00); RDW-CV 13.3 % (10.5-14.5); WBC 6.6 thou/uL (4.0-11.0)
[2019-08-11 11:31] LABS: ANION GAP 11 mmol/L (7-16); BUN 25 mg/dL (7-18); CALCIUM 9.7 mg/dL (8.5-10.1); CHLORIDE 100 mmol/L (98-107); CO2 25 mmol/L (21-32); CREATININE 1.6 mg/dL (0.6-1.3); GLUCOSE 113 mg/dL (70-99); POTASSIUM 4.9 mmol/L (3.5-5.1); SODIUM 136 mmol/L (136-145)
[2019-08-11 11:33] LABS: APTT 28.9 Seconds (25.0-31.3); PROTIME 10.7 Seconds (9.20-11.50)
[2019-08-11 11:36] LABS: ALBUMIN 4.3 g/dL (3.4-5.0); ALKALINE PHOSPHATASE 102 U/L (46-116); CHOLESTEROL 143 mg/dL (<200); HDL CHOLESTEROL 30 mg/dL (>40); LDL CHOLESTEROL 60 mg/dL (<100); SERUM ASSESSMENT Clear; SGOT 17 U/L (15-37); SGPT 38 U/L (30-65); TC:HDL 4.8 Ratio (Not establshd); TOTAL BILIRUBIN 0.8 mg/dL (<0.1-1.0); TOTAL PROTEIN 8.2 g/dL (6.4-8.2); TRIGLYCERIDE 268 mg/dL (<150); VLDL 54 mg/dL (<40)
[2019-08-11 18:46] LABS: CK-MB MASS < 0.5 ng/mL (<0.5-3.6); TROPONIN-I LEVEL <0.06 ng/mL (<0.06)
[2019-08-12] VITALS: BP 136/71
[2019-08-12 04:00] VITALS: BP 139/85
[2019-08-12 05:36] LABS: HEMOGLOBIN 14.1 gm/dL (14.0-18.0); MCH 31.6 pg (26.0-34.0); MCHC 33.6 g/dL (28.0-37.0); MCV 94.2 fL (80.0-100.0); MPV 8.4 fl. (7.2-11.1); RBC 4.46 mil/uL (4.50-6.00); RDW-CV 13.4 % (10.5-14.5); WBC 7.5 thou/uL (4.0-11.0)
[2019-08-12 06:06] LABS: ALBUMIN 3.5 g/dL (3.4-5.0); ALKALINE PHOSPHATASE 88 U/L (46-116); ANION GAP 10 mmol/L (7-16); BUN 23 mg/dL (7-18); CALCIUM 9.2 mg/dL (8.5-10.1); CHLORIDE 104 mmol/L (98-107); CK-MB MASS < 0.5 ng/mL (<0.5-3.6); CO2 25 mmol/L (21-32); CREATININE 1.5 mg/dL (0.6-1.3); GLUCOSE 85 mg/dL (70-99); POTASSIUM 4.9 mmol/L (3.5-5.1); SGOT 15 U/L (15-37); SGPT 36 U/L (30-65); SODIUM 139 mmol/L (136-145); TOTAL BILIRUBIN 0.6 mg/dL (<0.1-1.0); TOTAL PROTEIN 6.7 g/dL (6.4-8.2); TROPONIN-I LEVEL <0.06 ng/mL (<0.06)
[2019-08-12 08:05] VITALS: BP 129/58
--- NOTE | 2019-08-12 08:43 | EKG ---
[place] [address] ELECTROCARDIOGRAM REPORT Name: ROSHNI FERNANDEZ Room: [address] M.R.#: [id number] Admission: 08/11/19 Attend Phys: Taras Brown MD, Discharge: Date of : 56 Report #: [id number] THIS REPORT FOR: //name// [facility] Test Date: 2019-08-11 Test Time: 12:02:26 Pat Name: ROSHNI FERNANDEZ Department: Room: [facility] Gender: M Senior Policy Associate: : 1960 Requested By: Taras Brown Order Number: [id number] Jennifer MD: Low Clark Measurements Intervals [place] Rate: 61 P: -2 AL: 195 QRS: -62 QRSD: 103 T: 29 QT: 403 QTc: 406 Interpretive Statements Sinus rhythm Left axis deviation Inferior infarct, old, possible Compared to ECG 10/03/2018 08:04:26 Left-axis deviation now present Low QRS voltage now present Inferior Q waves now present Electronically Signed On 08-12-2019 8:43:24 CDT by Low Clark [email or web address] <ELECTRONICALLY SIGNED> By: Low Clark MD, FACC 08/12/19 0843 1202 1202 Low Clark MD, FACC /EPI
--- NOTE | 2019-08-12 08:47 | EKG ---
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
[2019-08-12 11:06] VITALS: BP 129/58
[2019-08-12] MEDS ORDERED: CARDIZEM CD 18180 M3 PO (12:11)
[2019-08-12 12:18] VITALS: BP 129/58
[2019-08-12 12:32] VITALS: BP 129/58
--- NOTE | 2019-08-13 16:22 | CARD ---
[address] [address] CARDIAC CATH REPORT Name: ROSHNI FERNANDEZ Room: [address] Jarett Taylor#: [id number] Admission: 08/11/19 Attend Phys: Taras Brown MD, Discharge: 08/12/19 Date of : 56 Report #: [id number] THIS REPORT FOR: //name// APPROVED REPORT Study performed: 08/11/2019 13:43:59 Patient Details The patient is a 59 year-old male Event Personnel Taras Brown Efficiency Expert, Nan Ruby RN Veterinary Meat Inspector, Niels Encarnacion PROJECT INSPECTOR Scrub, Dena Morocho RTR Monitor, Haris العراقي PROJECT INSPECTOR Scrub Procedures Performed Art Access - R femoral artery Left Heart Cath w/or w/o Coronaries [facility] Place w/wo Plasty Single LAD Hemostasis w/ Angioseal; recanalization of a chronic total occlusion of the mid left anterior descending coronary artery Indication Unstable angina Risk Factors Hypercholesterolemia, Hypertension Procedure Narrative The patient was brought electively to the Cardiac Catheterization Laboratory and was prepped and draped in a sterile manner. The right femoral was infiltrated with 2% Lidocaine subcutaneous anesthesia. A [place] 6 FR sheath was inserted into the right femoral artery. Coronary angiography was performed using coronary diagnostic catheters. The left coronary system was accessed and visualized with a JL 4 6F catheter. The left ventricle was accessed and visualized with a PIG 6F catheter. Left ventricular/Aortic Valve gradient assessed via catheter pullback. Pre-demployment femoral angiogram was performed . Closure device was deployed with a 6 Fr Angioseal. The patient tolerated the procedure well and there were no complications associated with the procedure. There was no hematoma. Intraoperative Conscious Sedation Sedation start time: 142 Case end Time: 155 Fentanyl 100 mcg Versed 4 [place] [address] CARDIAC CATH REPORT Name: ROSHNI FERNANDEZ Room: [address] M.R.#: [id number] Admission: 08/11/19 Attend Phys: Taras Brown MD, Discharge: 08/12/19 Date of : 56 Report #: [id number] Fluoro Time: 23.5 minutes Dose: DAP 960664 cGycm2 3759 mGy Contrast Type and Amount: Visipaque 500 ml Hemodynamics The aortic pressure is 138/63 mmHg with a mean of 79 mmHg. The left ventricular pressure is 106/6 mmHg with a mean of mmHg. The left ventricular end diastolic pressure is 15 mmHg. There was no gradient across the aortic valve upon pullback. PCI Technique Lesion Percutaneous coronary intervention was performed on the mid left anterior descending artery segment. The lesion stenosis prior to intervention was 100% with LALITHA 0 flow. A 6FR XB 3.5 100CM Guide Catheter was used to engage the LEFT ostium. A IG: TMAT Flex 300cm Interventional Guidewire was used to cross the lesion. BALLOON DILATION A Balloon catheter Mini Trek OTW 1.2 X 8 was inserted and inflated up to 10.00atm for 5seconds. Additional Inflation: 12.00atm for 5seconds. Additional Inflation: 14.00atm for 5seconds. Trek RX 2.25 x 12 inflated 6 sec @ 10 rai, 4 sec @ 10 rai, and 7 sec @ 18 rai Trek RX 2.5 x 12 inflated 6 sec @ 8 rai, 4 sec @ 18 rai, and 7 sec @ 18 rai Trek RX 2.5 x 20 inflated 8 sec @ 10 rai, 10 sec @ 14 rai, and 9 sec @ 16 rai STENT DEPLOYMENT A drug-eluting stent Biotronik Orsiro 2.25 x 30 was inserted and inflated up to 10.00atm for 6seconds. Additional Inflation: 12.00atm for 10seconds. Biotronik Orsiro 2.5 x 40 deployed for 15 sec @ 10 rai and additionally inflated for 11 sec @ 12 rai and 13 sec @ 14 rai POST STENT DEPLOYMENT BALLOON DILATION A Balloon catheter NC Trek RX 2.5 X 12 was inserted and inflated up to 12.00atm for 8seconds. Additional Inflation: 17.00atm for 5seconds. Additional Inflation: 20.00atm for 9seconds. NC Trek RX 2.5 x 12 reinserted and inflated up to 8 sec @ 16 rai and 11 sec @ 18 rai COMMENTS The chronic total occlusion was traversed with a Fielder XT wire which I then exchanged for a runthrough wire utilizing a finecross [place] [address] CARDIAC CATH REPORT Name: ROSHNI FERNANDEZ Room: [address] Jarett Taylor#: [id number] Admission: 08/11/19 Attend Phys: Taras Brown MD, Discharge: 08/12/19 Date of : 56 Report #: [id number] PCI Technique Lesion 2 Percutaneous coronary intervention was performed on the proximal left anterior descending artery segment. The lesion stenosis prior to intervention was 75% with LALITHA 3 flow. Stent Deployment A drug-eluting stent 2.5x40 orsiro was inserted and inflated up to 15atm for 20seconds. Post Stent Deployment Balloon Dilation A Balloon catheter NC Trek RX 2.5 X 12 was inserted and inflated up to 12-18atm for 15seconds. Final angiography reveals 10 % stenosis with LALITHA 3 flow. Conclusion #1 severe coronary artery disease characterized by the following: A 75% tubular proximal LAD occlusion with 100% chronic total occlusion of the mid LAD with faint left to left collaterals filling the most apical portion B 80% tubular narrowing of the proximalmidportion of the prominent though nondominant circumflex C previously defined total occlusion of the right coronary artery proximally with [id number] collaterals filling the distal right coronary artery #2 normal left-sided hemodynamic study #3 successful recanalization of the chronic total occlusion of the mid LAD with 0% residual narrowing following stent deployment #4 successful percutaneous coronary intervention with deployment of a drug-eluting stent at site of 75% proximal LAD narrowing with 10% residual narrowing and LALITHA-3 flow to the distal vessel Recommendations Cardiac Risk Reduction Program Aggressive Medical Therapy Medications Administered Aspirin (any) [place] [address] CARDIAC CATH REPORT Name: ROSHNI FERNANDEZ Room: [address] Jarett Taylor#: [id number] Admission: 08/11/19 Attend Phys: Taras Brown MD, Discharge: 08/12/19 Date of : 56 Report #: [id number] Diagnostic Cath Approved by: Taras Brown MD Date/Time: 08/13/2019 16:18:53 <ELECTRONICALLY SIGNED> By: Taras Brown MD, FACC 08/13/19 1622 21 162Jolex Brown MD, FAC /INF
--- NOTE | 2019-08-13 16:47 | D ---
[address] [address] DISCHARGE SUMMARY Name: ROSHNI FERNANDEZ Room: [address] Jarett Taylor#: [id number] Admission: 08/11/19 Attend Phys: Taras Brown MD, Discharge: 08/12/19 Date of : 56 Report #: [id number] THIS REPORT FOR: //name// CC: Manpreet Brown DATE OF SERVICE: 08/12/2019 FINAL DISCHARGE DIAGNOSES: 1. Unstable angina. 2. Coronary artery disease. 3. Status post percutaneous coronary intervention to chronic total occlusion of the mid left anterior descending artery. 4. Paroxysmal atrial fibrillation. 5. Hypertension. 6. Hyperlipidemia. PROCEDURES: On 08/12/2019, left heart catheterization, selective coronary arteriography, percutaneous coronary intervention with recanalization of chronic total occlusion of the mid left anterior descending coronary artery. HOSPITAL COURSE: The patient is a pleasant 59-year-old male with complex coronary artery disease. He presented with increasing angina and underwent recent catheterization, which revealed significant multivessel disease. He refused surgical intervention and stenting was done to the mid LAD. He presented with recurrent and unstable angina. Recatheterization was undertaken on 08/12/2019, which revealed total occlusion of the LAD with some collateralization of the distal LAD with 75-80% proximal-mid circumflex narrowing and total occlusion of the right coronary artery with faint left to right collaterals filling the distal right coronary artery. I performed a complex intervention with recanalization of chronic total occlusion of the LAD traversing this lesion with a Fielder XT wire and ultimately deploying 2 drug-eluting stents in the distal and mid LAD with 10% residual narrowing and LALITHA 3 flow to the distal vessel. The patient did well post-procedurally with no chest pain and troponin being less than 0.06 on two occasions. Hemoglobin was 14.1, white blood cell count 7500 with 187,000 platelets. Sodium 139, potassium 4.9, BUN 23, creatinine 1.5. The patient ambulated in the hallways without difficulty with good hemostasis at the right femoral site of catheterization. He was discharged to home on 08/12 on the following medications: Aspirin 81 mg daily, atorvastatin 40 mg daily, diltiazem extended release 180 mg daily, Uloric 80 mg daily, hydrochlorothiazide 12.5 mg daily, Imdur 30 mg daily, lisinopril 40 mg daily, propafenone 150 mg t.i.d., ticagrelor 90 mg b.i.d., [place] [address] DISCHARGE SUMMARY Name: ROSHNI FERNANDEZ Room: [address] Jarett Taylor#: [id number] Admission: 08/11/19 Attend Phys: Taras Brown MD, Discharge: 08/12/19 Date of : 56 Report #: [id number] nitroglycerin. The patient is scheduled to return to see my nurse practitioner, Citlalli Roa, on 08/19/2019 and he will require stage intervention to the circumflex as outlined above. Therefore, the patient is discharged to home in stable condition on the above described medications with followup as iterated above. <ELECTRONICALLY SIGNED> By: Taras Brown MD, FACC 08/13/19 1647 1654 [id number] Brown MD, FACC /nt
== END 2019-08-12 13:15 | disposition home or self-care (01) ==
LOC: M.CL 10:37 → M.TBA-CV 16:27 → M.2W 16:48
PROVIDERS: ADMIT Internal Medicine
DX: I25.110 Atherosclerotic heart disease of native coronary artery with unstable angina pectoris (principal); I48.0 Paroxysmal atrial fibrillation; I10 Essential (primary) hypertension; E78.5 Hyperlipidemia, unspecified; E78.00 Pure hypercholesterolemia, unspecified; Z79.899 Other long term (current) drug therapy; Z79.82 Long term (current) use of aspirin

== ENCOUNTER 2019-10-10 07:35 | Observation (INO) | payer OTHER ==
[2019-10-10] VITALS (11 sets, daily range): BP systolic 117–154; BP diastolic 61–81
[~2019-10-10] VITALS: Ht 175.3 cm; Wt 108.0 kg
--- NOTE | ~2019-10-10 | D ---
[address] [address] DISCHARGE SUMMARY Name: ROSHNI FERNANDEZ Room: [address] Clauida#: [id number] Admission: 10/10/19 Attend Phys: Taras Brown MD, Discharge: Date of : 56 Report #: [id number] THIS REPORT FOR: //name// CC: Manpreet Brown DATE OF SERVICE: 10/11/2019 FINAL DISCHARGE DIAGNOSES: 1. Unstable angina. 2. Coronary artery disease. 3. Status post prior percutaneous coronary interventions to the left anterior descending artery with more recent percutaneous coronary intervention to the circumflex. 4. Hypertension. 5. Hyperlipidemia. 6. History of paroxysmal atrial fibrillation. 7. Mild renal insufficiency. PROCEDURES: 09/2019: -- left heart catheterization, selective coronary arteriography, percutaneous coronary intervention with deployment of drug-eluting stent at the site of 80% proximal-mid circumflex stenosis. The patient is a very pleasant 59-year-old male who presented several weeks ago with unstable angina. In that context, he underwent cardiac catheterization, which revealed total occlusion of the LAD with some left to left collaterals filling the distal LAD. I performed recanalization of the chronic total occlusion of the LAD with a good angiographic result. After completing that, I did not undertake additional intervention on that date while he was noted to have an 80% stenosis of the proximal-mid circumflex. The right coronary artery was chronically occluded with prominent left to right collaterals filling the distal right coronary system. He had preserved systolic function. At this point, I elected to proceed with percutaneous coronary intervention to the circumflex, deploying 1 drug-eluting stent in the proximal-mid circumflex with 10% residual narrowing and LALITHA 3 flow of the distal vessel. He did well post-procedurally and laboratory on 10/11/2019 revealed a hemoglobin of 14.0, white blood cell count of 6700 with 217,000 platelets. Sodium 139, potassium 4.5, BUN 21, creatinine 1.4. Troponin maame inconsequentially to 0.25. He did well post-procedurally and there was good hemostasis at the right femoral site of catheterization. He ambulated in the hallways without difficulty and was discharged to home on 10/11/2019 on the following medications: Allopurinol 300 mg daily, aspirin 81 mg daily, atorvastatin 40 mg daily, diltiazem extended release 180 mg daily, hydrochlorothiazide 12.5 mg daily, Imdur 30 mg daily, [place] [address] DISCHARGE SUMMARY Name: ROSHNI FERNANDEZ Room: [address]#: [id number] Admission: 10/10/19 Attend Phys: Taras Brown MD, Discharge: Date of : 56 Report #: [id number] lisinopril 40 mg daily, propafenone 150 mg t.i.d., ticagrelor 90 mg b.i.d. He is scheduled to return to see my nurse practitioner, Citlalli Roa, on 10/31/2019 at 1030 hours and myself on 12/11/2019 at 1330 hours. Therefore, the patient is discharged to home in stable condition on the aforementioned medications with followup as outlined above. By: 1028 1057Taras Brown MD, FACC /nt
[~2019-10-10 07:35] MED LIST changes: +CARDIZEM CD 18180 M3 PO
[2019-10-10] MEDS ORDERED: ALLOPURINOL 30300 M1 PO (08:03)
[2019-10-10 08:42] LABS: HEMATOCRIT 44.7 % (42.0-52.0); HEMOGLOBIN 15.3 gm/dL (14.0-18.0); MCH 32.2 pg (26.0-34.0); MCHC 34.2 g/dL (28.0-37.0); MCV 94.2 fL (80.0-100.0); MPV 8.3 fl. (7.2-11.1); RBC 4.74 mil/uL (4.50-6.00); RDW-CV 13.8 % (10.5-14.5); WBC 5.8 thou/uL (4.0-11.0)
[2019-10-10 08:50] LABS: ANION GAP 14 mmol/L (7-16); APTT 28.9 Seconds (25.0-31.3); BUN 26 mg/dL (7-18); CALCIUM 9.4 mg/dL (8.5-10.1); CHLORIDE 103 mmol/L (98-107); CO2 22 mmol/L (21-32); CREATININE 1.6 mg/dL (0.6-1.3); GLUCOSE 117 mg/dL (70-99); POTASSIUM 4.4 mmol/L (3.5-5.1); PROTIME 10.6 Seconds (9.20-11.50); SODIUM 139 mmol/L (136-145)
[2019-10-10 08:55] LABS: ALBUMIN 4.4 g/dL (3.4-5.0); ALKALINE PHOSPHATASE 96 U/L (46-116); CHOLESTEROL 141 mg/dL (<200); HDL CHOLESTEROL 28 mg/dL (>40); LDL CHOLESTEROL 72 mg/dL (<100); SGOT 19 U/L (15-37); SGPT 34 U/L (30-65); TOTAL BILIRUBIN 0.9 mg/dL (<0.1-1.0); TOTAL PROTEIN 8.3 g/dL (6.4-8.2); TRIGLYCERIDE 206 mg/dL (<150); VLDL 41 mg/dL (<40)
[2019-10-10 08:56] LABS: SERUM ASSESSMENT Clear
--- NOTE | 2019-10-10 11:08 | CARD ---
[address] [address] CARDIAC CATH REPORT Name: ROSHNI FERNANDEZ Room: [address] Jarett Taylor#: [id number] Admission: 10/10/19 Attend Phys: Traas Brown MD, Discharge: Date of : 56 Report #: [id number] THIS REPORT FOR: //name// APPROVED REPORT Study performed: 10/10/2019 08:56:[address] Taras Brown Procedures Performed Left heart catheterization selective coronary arteriography and percutaneous coronary intervention to the circumflex Indication Unstable angina Risk Factors Hypercholesterolemia, Hypertension Previous Procedures/Diagnoses Previous PCI Admission/Lab Medications/Medications given during procedure Angiomax bolus and infusion Procedure Narrative The patient was brought electively to the Cardiac Catheterization Laboratory and was prepped and draped in a sterile manner. The right femoral was infiltrated with 2% Lidocaine subcutaneous anesthesia. The right coronary system was accessed and visualized with a Diagnostic catheter. The left coronary system was accessed and visualized with a Diagnostic catheter. The left ventricle was accessed and visualized with a Diagnostic catheter. Left ventricular/Aortic Valve gradient assessed via catheter pullback. Pre-demployment femoral angiogram was performed . Closure device was deployed with a 6 Fr Angioseal. There was no hematoma. Coronary Angiography The patient's coronary anatomy is right dominant. Diagnostic Cath Left Main 0% narrowing LAD 10% proximalmid LAD narrowing with widely patent proximalmid [address] [address] CARDIAC CATH REPORT Name: ROSHNI FERNANDEZ Room: [address] MJaneR.#: [id number] Admission: 10/10/19 Attend Phys: Traas Brown MD, Discharge: Date of : 56 Report #: [id number] LAD stents Circumflex 80% proximal stenosis with 90% narrowings of the small first and second marginal branches Right Coronary 100% mid vessel occlusion with [id number]-soyfx collaterals filling the distal right coronary artery Left Ventriculography Left Ventriculography was not performed. Hemodynamics The aortic pressure is 110/70 mmHg with a mean of 82 mmHg. The left ventricular end diastolic pressure is 8 mmHg. There was no gradient across the aortic valve upon pullback. PCI Technique Lesion Anticoagulation was achieved with Angiomax. Percutaneous coronary intervention was performed on the proximal circumflex artery segment. The lesion stenosis prior to intervention was 80% with LALITHA 3 flow. BALLOON DILATION A Balloon catheter 2.5 x 12 mm trek was inserted and inflated up to 16atm for 15seconds. 2.75 x 12 NC trek inflated to 14 rai STENT DEPLOYMENT A drug-eluting stent 2.5 x 15 mm Xience was inserted and inflated up to 12atm for 15seconds. Final angiography reveals 10 % stenosis with LALITHA 3 flow. Conclusion #1 significant coronary artery disease characterized by the following: A 10% proximalmid LAD narrowing with widely patent proximalmid LAD stents B 80% narrowing of the proximal portion of the prominent though nondominant circumflex with 90% narrowings of the small first and second marginal branches C total occlusion of the dominant right coronary artery in is midportion with asgx-wf-ybbgk collaterals filling the distal [place] [address] CARDIAC CATH REPORT Name: ROSHNI FERNANDEZ Room: [address] Jarett Taylor#: [id number] Admission: 10/10/19 Attend Phys: Taras Brown MD, Discharge: Date of : 56 Report #: [id number] #2 normal left-sided hemodynamic study #3 successful percutaneous coronary intervention with deployment of drug-eluting stent at the site of 80% proximal circumflex proximal narrowing with 10% residual following stent deployment and LALITHA-3 flow to the distal vessel Recommendations Cardiac Risk Reduction Program Aggressive Medical Therapy Medications Administered Ticagrelor Diagnostic Cath Approved by: Taras Brown MD Date/Time: 10/10/2019 11:06:26 <ELECTRONICALLY SIGNED> By: Taras Brown MD, [facility] 10/10/19 1107 1107 1107Jolex Brown MD, FACC /INF
--- NOTE | 2019-10-10 13:30 | EKG ---
[place] [address] ELECTROCARDIOGRAM REPORT Name: ROSHNI FERNANDEZ Room: [address] M.R.#: [id number] Admission: 10/10/19 Attend Phys: Taras Brown MD, Discharge: Date of : 56 Report #: [id number] THIS REPORT FOR: //name// [facility] Test Date: 2019-10-10 Test Time: 08:11:15 Pat Name: ROSHNI FERNANDEZ Department: Room: [facility] Gender: M Check Processor: : 1960 Requested By: Taras Brown Order Number: [id number] Jennifer MD: Taras Brown Measurements Intervals [place] Rate: 63 P: 10 DC: 201 QRS: -44 QRSD: 98 T: 25 QT: 412 QTc: 422 Interpretive Statements Sinus rhythm Inferior infarct, old Compared to ECG 08/12/2019 03:11:53 Left-axis deviation no longer present Myocardial infarct finding still present Electronically Signed On 10-10-2019 13:30:31 CORPORATE HUMAN RESOURCES MANAGER by Taras Brown [email or web address] <ELECTRONICALLY SIGNED> By: Taras Brown MD, [facility] 10/10/19 1330 0811 0811 Taras Brown MD, [facility] /EPI
--- NOTE | 2019-10-10 13:33 | EKG ---
[place] [address] ELECTROCARDIOGRAM REPORT Name: ROSHNI FERNANDEZ Room: [address] M.R.#: [id number] Admission: 10/10/19 Attend Phys: Taras Brown MD, Discharge: Date of : 56 Report #: [id number] THIS REPORT FOR: //name// [facility] Test Date: 2019-10-10 Test Time: 11:48:48 Pat Name: ROSHNI FERNANDEZ Department: Room: [facility] Gender: M Dial Painter: : 1960 Requested By: Taras Brown Order Number: [id number] Jennifer MD: Taras Brown Measurements Intervals [place] Rate: 58 P: 40 GA: 228 QRS: -20 QRSD: 99 T: 44 QT: 422 QTc: 415 Interpretive Statements Sinus rhythm Prolonged GA interval Borderline left axis deviation Low voltage, extremity leads Compared to ECG 08/12/2019 03:11:53 First degree AV block now present Myocardial infarct finding no longer present Electronically Signed On 10-10-2019 13:33:22 SHIP RUNNER by Taras Brown [email or web address] <ELECTRONICALLY SIGNED> By: Taras Brown MD, [facility] 10/10/19 1333 1148 1148 Taras Brown MD, [facility] /EPI
--- NOTE | 2019-10-10 16:19 | NUR ---
RECEIVED PT FROM BULLARD OPERATOR AT 1050. PT R GROIN CATH SITE C/D/I. POST CATH VS MONITOR. PT BEEN BEDREST UNTIL 1600. AOX4, UP SBA, O2 SAT 90'S RA. TRACING SINUS RHYTHM ON TELE. ADMISSION ASSESSMENT CHARTED. PT IV ACCESS INTACT, FLUIDS RUNNING. HOURLY ROUNDING, CALL LIGHT WITHIN REACH, WILL CONTINUE TO MONITOR.
[2019-10-11] VITALS: BP 111/62
[2019-10-11 04:00] VITALS: BP 142/73
--- NOTE | 2019-10-11 06:00 | NUR ---
PROGRESSING TOWARDS GOALS, RESTING QUIELTY WITH EYES CLOSED MOST OF NOC, EASILY AROUSABLE TO VERBAL STIMULI, DENIES PAIN OR DISCOMFORT, RIGHT GROIN SITE S/P CARDIAC CATHETERIZATION REMAINS C/D/I, RESP EVEN AND NONLABORED, NSR TRACING DYE BOX OPERATOR WITH OCCASIONAL PAC'S, VOIDING PER URINAL, CALL LIGHT REMAINS IN REACH
[2019-10-11 07:30] VITALS: BP 137/79
[2019-10-11 08:07] LABS: HEMATOCRIT 40.9 % (42.0-52.0); MCH 32.2 pg (26.0-34.0); MCHC 34.3 g/dL (28.0-37.0); MCV 93.9 fL (80.0-100.0); MPV 8.4 fl. (7.2-11.1); RBC 4.36 mil/uL (4.50-6.00); RDW-CV 13.9 % (10.5-14.5); WBC 6.7 thou/uL (4.0-11.0)
[2019-10-11 08:25] LABS: ALBUMIN 3.7 g/dL (3.4-5.0); CALCIUM 9.2 mg/dL (8.5-10.1); CREATININE 1.4 mg/dL (0.6-1.3); POTASSIUM 4.5 mmol/L (3.5-5.1); TOTAL BILIRUBIN 1.1 mg/dL (<0.1-1.0); TOTAL PROTEIN 7.2 g/dL (6.4-8.2); TROPONIN-I LEVEL 0.25 ng/mL (<0.06)
--- NOTE | 2019-10-11 10:46 | NUR ---
ASSUMED PT CARE AT 0800, AOX4, UP AD NELLIE, O2 SAT 90'S RA. TRACING SINUS RHYTHM ON TELE. PT FOR DISCHARGE. VSS, AM ASSESSMENT CHARTED, MEDS GIVEN PER MAR. CALL LIGHT WITHIN REACH, WILL CONTINUE TO MONITOR.
[2019-10-11 10:51] VITALS: BP 125/73
--- NOTE | 2019-10-11 12:58 | EKG ---
[place] [address] ELECTROCARDIOGRAM REPORT Name: ROSHNI FERNANDEZ Room: [address]R.#: [id number] Admission: 10/10/19 Attend Phys: Taras Brown MD, Discharge: 10/11/19 Date of : 56 Report #: [id number] THIS REPORT FOR: //name// [facility] Test Date: 2019-10-11 Test Time: 05:19:35 Pat Name: ROSHNI FERNANDEZ Department: Room: [facility] Gender: M Java Sdet: KREED7 : 1960 Requested By: Taras Brown Order Number: [id number] Reading MD: Dm Howe Measurements Intervals [place] Rate: 59 P: 23 [place]: 203 QRS: -25 QRSD: 94 T: 30 QT: 400 QTc: 397 Interpretive Statements Sinus rhythm Probable inferior infarct, old Compared to ECG 10/10/2019 11:48:48 Myocardial infarct finding now present First degree AV block no longer present Electronically Signed On 10-11-2019 12:58:28 UPPER TRIMMER by Dm Howe [email or web address] <ELECTRONICALLY SIGNED> By: Maricruz Howe MD, [facility] 10/11/19 1258 8 8 Maricruz Howe MD, [facility] /EPI
== END 2019-10-11 12:32 | disposition home or self-care (01) ==
LOC: M.CL 07:35 → M.2W 10:41 → M.TBA-CV 10:41 → M.2W 10:56
PROVIDERS: ADMIT Internal Medicine
DX: I25.119 Atherosclerotic heart disease of native coronary artery with unspecified angina pectoris (principal); I10 Essential (primary) hypertension; E78.5 Hyperlipidemia, unspecified; I48.0 Paroxysmal atrial fibrillation; N28.89 Other specified disorders of kidney and ureter

== ENCOUNTER 2020-03-19 07:48 | Observation (INO) | payer OTHER ==
[~2020-03-19] VITALS: Ht 175.3 cm; Wt 108.0 kg
[~2020-03-19 07:48] MED LIST changes: +ALLOPURINOL 30300 M1 PO; -ATORVASTATIN CA40 MG PO; +LIPITOR40 MG PO
[2020-03-19 09:03] LABS: HEMATOCRIT 42.5 % (42.0-52.0); HEMOGLOBIN 14.5 gm/dL (14.0-18.0); MCH 32.1 pg (26.0-34.0); MCHC 34.1 g/dL (28.0-37.0); MCV 94.3 fL (80.0-100.0); MPV 8.3 fl. (7.2-11.1); RBC 4.51 mil/uL (4.50-6.00); RDW-CV 13.8 % (10.5-14.5); WBC 9.4 thou/uL (4.0-11.0)
[2020-03-19 09:08] LABS: ANION GAP 12 mmol/L (7-16); BUN 29 mg/dL (7-18); CALCIUM 8.9 mg/dL (8.5-10.1); CHLORIDE 101 mmol/L (98-107); CO2 23 mmol/L (21-32); CREATININE 1.7 mg/dL (0.6-1.3); GLUCOSE 117 mg/dL (70-99); POTASSIUM 4.5 mmol/L (3.5-5.1); SODIUM 136 mmol/L (136-145)
[2020-03-19 09:12] LABS: ALBUMIN 3.7 g/dL (3.4-5.0); ALKALINE PHOSPHATASE 114 U/L (46-116); CHOLESTEROL 113 mg/dL (<200); HDL CHOLESTEROL 31 mg/dL (>40); LDL CHOLESTEROL 49 mg/dL (<100); SGOT 25 U/L (15-37); SGPT 28 U/L (30-65); TC:HDL 3.6 Ratio (Not establshd); TOTAL BILIRUBIN 1.2 mg/dL (<0.1-1.0); TOTAL PROTEIN 8.3 g/dL (6.4-8.2); TRIGLYCERIDE 165 mg/dL (<150); VLDL 33 mg/dL (<40)
[2020-03-19 09:13] LABS: APTT 31.7 Seconds (25.0-31.3); PROTIME 10.7 Seconds (9.20-11.50)
[2020-03-19 09:15] LABS: SERUM ASSESSMENT Clear
--- NOTE | 2020-03-19 15:04 | CARD ---
[address] [address] CARDIAC CATH REPORT Name: SAVANAROSALINDAROSHNI Tete Room: [address] Claudia#: [id number] Admission: 03/19/20 Attend Phys: Taras Brown MD, Discharge: Date of : 56 Report #: [id number] THIS REPORT FOR: //name// cc: Manpreet Carmen MD, David L. MD ~ APPROVED REPORT Study performed: 03/19/2020 08:47:48 Patient Details Patient Status: Out-Patient Room #: The patient is a 60 year-old male Event Personnel Taras Brown Maltster, Erika Ray RTR ScrRashawn philippe Jessie RTR Monitor, Valerie Fagan RN in store marketer Performed Art Access - R femoral artery Left Heart Cath w/or w/o Coronaries TIMUR Place w/wo Plasty Single LAD Hemostasis w/ Angioseal Indication Unstable angina Previous Procedures/Diagnoses Previous PCI Admission/Lab Medications/Medications given during procedure Angiomax bolus and infusion Procedure Narrative The patient was brought electively to the Cardiac Catheterization Laboratory and was prepped and draped in a sterile manner. The right femoral was infiltrated with 2% Lidocaine subcutaneous anesthesia. A Hammond 6 FR sheath was inserted into the right femoral artery. Coronary angiography was performed using coronary diagnostic catheters. The right coronary system was accessed and visualized with a Diagnostic 6 Fr JR 4 catheter. The left coronary system was accessed and visualized with a Diagnostic 6 Fr JL 4 catheter. The left ventricle was accessed and visualized with a Diagnostic 6 Fr Pigtail catheter. Left ventricular/Aortic Valve gradient assessed via catheter pullback. Left ventriculogram was performed in LOPEZ projection. Pre-demployment femoral angiogram was performed . Closure device was deployed with a Fr Angioseal STS 6[place] [address] CARDIAC CATH REPORT Name: ROSHNI FERNANDEZ Room: [address] M..#: [id number] Admission: 03/19/20 Attend Phys: Taars Brown MD, Discharge: Date of : 56 Report #: [id number] tolerated the procedure well and there were no complications associated with the procedure. There was no hematoma. Intraoperative Conscious Sedation Sedation start time: 10:21 Case end Time: 11:21 Fentanyl 50 mcg Versed 2 mg Fluoro Time: 11.4 minutes Dose: DAP [id number] cGycm2 2306 mGy Contrast Type and Amount: Visipaque 240 ml Diagnostic Cath Left Main 0% narrowing LAD Prominent system with 90% eccentric focal mid LAD stenosis with 40% distal LAD in-stent narrowing and 75% apical stenosis Circumflex Nondominant vessel with 40% proximal narrowing Right Coronary Dominant vessel with 100% mid vessel occlusion hjeu-zu-ftaiz collaterals filling the distal right coronary artery Left Ventriculography The left ventricle is normal in size with normal contractility. The left ventricular ejection fraction is estimated to be 60%. Left ventricular wall motion abnormalities are not present. There is no mitral insufficiency. Hemodynamics The aortic pressure is 158/78 mmHg with a mean of 110 mmHg. The left ventricular pressure is 156/0 mmHg with a mean of mmHg. The left ventricular end diastolic pressure is 17 mmHg. There was no gradient across the aortic valve upon pullback. PCI Technique Lesion Anticoagulation was achieved with Angiomax Drip. Patient was preloaded with Angiomax IV 16.5 ml. Percutaneous coronary intervention was performed on the mid left anterior descending artery segment. The lesion stenosis prior to intervention was 90% with LALITHA 3 flow. A 6F XB LAD 3.5 Guide Catheter was used to engage the left ostium. A IG: ProwaterFlex 180CM Interventional Guidewire was used to cross the lesion. BALLOON DILATION A Balloon catheter Trek RX 2.5 X 12 was inserted and inflated up to 16.00atm for 17seconds. Additional Inflation: 18.00atm [place] [address] CARDIAC CATH REPORT Name: EVAReannaROSHNI Room: [address] M.R.#: [id number] Admission: 03/19/20 Attend Phys: Taras Brown MD, Discharge: Date of : 56 Report #: [id number] 14seconds. STENT DEPLOYMENT A drug-eluting stent Dick RX Stent 2.48F35rw was inserted and inflated up to 12.00atm for 13seconds. Additional Inflation: 12.00atm for 12seconds. POST STENT DEPLOYMENT BALLOON DILATION A Balloon catheter NC Trek RX 2.75 X 12 was inserted and inflated up to 17.00atm for 14seconds. Additional Inflation: 20.00atm for 18seconds. Final angiography reveals 0 % stenosis with LALITHA 3 flow. Conclusion 1. Significant coronary artery disease characterized by the following: A 90% eccentric focal mid LAD stenosis followed by a 40% distal LAD in-stent narrowing and 75% apical stenosis with 75% narrowing in the midportion of a small first diagonal branch P 40% narrowing the proximal portion of the nondominant circumflex C total occlusion of the dominant right coronary is midportion with left to right collaterals filling the distal right coronary artery 2. Normal left ventricular systolic function, estimated ejection fraction 60% 3. Mild elevation of left end-diastolic pressure at rest 4. Successful PCI with deployment of a drug-eluting stent at the site of 90% mid LAD stenosis with 0% residual narrowing and LALITHA-3 flow to the distal vessel Recommendations Cardiac Risk Reduction Program Aggressive Medical Therapy Medications [place] [address] CARDIAC CATH REPORT Name: SAVANAROSHNI TELLEZ Tete Room: [address] Jarett Taylor#: [id number] Admission: 03/19/20 Attend Phys: Taras Brown MD, Discharge: Date of : 56 Report #: [id number] Diagnostic Cath Approved by: Taras Brown MD Date/Time: 03/19/2020 15:02:03 <ELECTRONICALLY SIGNED> By: Taras Brown MD, [facility] 03/19/20 1502 150 1502Jolex Brown MD, [facility] /INF
[2020-03-19 15:25] VITALS: BP 121/65
--- NOTE | 2020-03-19 16:19 | EKG ---
[place] [address] ELECTROCARDIOGRAM REPORT Name: ROSHNI FERNANDEZ Room: [address] M.R.#: [id number] Admission: 03/19/20 Attend Phys: Familia Severino Discharge: Date of : 56 Date of Service: 03/19/20 0853 Report #: [id number] THIS REPORT FOR: //name// [facility] Test Date: 2020-03-19 Test Time: 08:53:37 Pat Name: ROSHNIMARGARITA FERNANDEZ Department: Room: [facility] Gender: M Implementation Advisor: : 1960 Requested By: Taras Brown Order Number: [id number] Reading MD: Taras Brown Measurements Intervals [place] Rate: 68 P: 8 MT: 218 QRS: -39 QRSD: 109 T: 33 QT: 403 QTc: 429 Interpretive Statements Sinus rhythm Borderline prolonged MT interval Left axis deviation Low voltage, extremity leads Compared to ECG 10/11/2019 05:19:35 Left-axis deviation now present Low QRS voltage now present Myocardial infarct finding no longer present Electronically Signed On 03-19-2020 16:17:40 CDT by Taras Brown [email or web address] <ELECTRONICALLY SIGNED> By: Taras Brown MD, [facility] 03/19/20 1617 0853 0853 Taras Brown MD, [facility] /EPI
[2020-03-19 16:25] VITALS: BP 134/68
--- NOTE | 2020-03-19 16:29 | EKG ---
[place] [address] ELECTROCARDIOGRAM REPORT Name: ROSHNI FERNANDEZ Room: [address]R.#: [id number] Admission: 03/19/20 Attend Phys: Familia Severino Discharge: Date of : 56 Date of Service: 03/19/20 1418 Report #: [id number] THIS REPORT FOR: //name// [facility] Test Date: 2020-03-19 Test Time: 14:18:35 Pat Name: ROSHNI REBECCA Department: Room: [facility] Gender: M Fabrication Engineer: : 1960 Requested By: Taras Brown Order Number: [id number] Jennifer MD: Taras Brown Measurements Intervals [place] Rate: 61 P: 11 [place]: 205 QRS: -56 QRSD: 104 T: 30 QT: 412 QTc: 415 Interpretive Statements Sinus rhythm Inferior infarct, old possible Compared to ECG 10/11/2019 05:19:35 No significant changes Electronically Signed On 03-19-2020 16:27:31 CDT by Taras Brown [email or web address] <ELECTRONICALLY SIGNED> By: Taras Brown MD, [facility] 03/19/20 1627 1418 1418 Taras Brown MD, [facility] /EPI
[2020-03-19 19:00] VITALS: BP 101/47
[2020-03-19 20:00] VITALS: BP 116/45
[2020-03-19 21:00] VITALS: BP 105/59
[2020-03-19 22:00] VITALS: BP 117/55
[2020-03-20 03:45] VITALS: BP 133/67
[2020-03-20 04:50] LABS: HEMATOCRIT 38.1 % (42.0-52.0); HEMOGLOBIN 12.7 gm/dL (14.0-18.0); MCH 32.3 pg (26.0-34.0); MCHC 33.4 g/dL (28.0-37.0); MCV 96.7 fL (80.0-100.0); MPV 8.7 fl. (7.2-11.1); RBC 3.94 mil/uL (4.50-6.00); RDW-CV 13.7 % (10.5-14.5); WBC 9.6 thou/uL (4.0-11.0)
[2020-03-20 05:20] LABS: ALBUMIN 3.2 g/dL (3.4-5.0); CALCIUM 8.7 mg/dL (8.5-10.1); CREATININE 1.5 mg/dL (0.6-1.3); POTASSIUM 4.5 mmol/L (3.5-5.1); TOTAL BILIRUBIN 1.1 mg/dL (<0.1-1.0); TOTAL PROTEIN 7.3 g/dL (6.4-8.2); TROPONIN-I LEVEL 0.08 ng/mL (<0.06)
[2020-03-20 12:00] VITALS: BP 183/100
--- NOTE | 2020-03-20 12:23 | D ---
[address] [address] DISCHARGE SUMMARY Name: ROSHNI FERNANDEZ Room: [address] Claudia#: [id number] Admission: 03/19/20 Attend Phys: Taras Brown MD, Discharge: Date of : 56 Report #: [id number] THIS REPORT FOR: //name// cc: Manpreet Carmen MD, David L. MD ~ THIS REPORT FOR: //name// CC: Manpreet Brown DATE OF SERVICE: 03/20/2020 FINAL DISCHARGE DIAGNOSES: 1. Unstable angina. 2. Coronary artery disease. 3. Status post percutaneous coronary intervention of the left anterior descending. 4. Paroxysmal atrial fibrillation. 5. Hyperlipidemia. 6. Obesity. 7. Hypertension. PROCEDURES: 03/19/20 -- left heart catheterization, left ventriculography, selective coronary arteriography and percutaneous coronary intervention with deployment of drug-eluting stent in the mid LAD. The patient is a very pleasant and active 60-year-old male with a history of coronary artery disease, status post multiple prior percutaneous coronary interventions. He presented several weeks ago with recurrent chest pain following a pattern of increased frequency and severity. Doing his work, which requires a fair amount of physical exertion or walking uphill will bring episodes of chest discomfort remitting with nitrates or rest. He denied pain at night, but episodes have become more frequent and more severe. In this context, I recommend recatheterization, which was performed on 03/19/2020. That study revealed a 90% eccentric stenosis of the LAD just after the first septal talent scout with 40-50% distal LAD narrowing and 75% most apical stenosis. There was a widely patent circumflex stent. There was moderate disease of the small diagonal and septal talent scout. LV function was normal, estimated ejection fraction of 60%. The patient did well post-procedurally and laboratory data on 03/20 revealed a sodium of 138, potassium 4.5, BUN 22, creatinine 1.5, glucose 103. Hemoglobin 12.7, white blood cell count 9600, platelets 205,000. Troponin 0.08. There was good hemostasis at the right [place] [address] DISCHARGE SUMMARY Name: ROSHNI FERNANDEZ Room: [address] M.R.#: [id number] Admission: 03/19/20 Attend Phys: Taras Brown MD, Discharge: Date of : 56 Report #: [id number] DISCHARGE MEDICATIONS: He was discharged to home on the following medications: Allopurinol 300 mg daily, aspirin 81 mg daily, atorvastatin 40 mg daily, diltiazem extended release 180 mg daily, Imdur 30 mg daily, lisinopril 40 mg daily, propafenone 150 mg t.i.d., ticagrelor 90 mg b.i.d., and p.r.n. sublingual nitroglycerin for recurrent chest discomfort. I will plan to see the patient in followup on 04/20/2020 at 09:20 hours at [facility] office. Therefore, the patient is discharged to home in stable condition on the aforementioned medications with followup as described above. <ELECTRONICALLY SIGNED> By: Taras Brown MD, FACC 03/20/20 1223 1010 [id number] Brown MD, FACC /nt
--- NOTE | 2020-03-21 11:02 | EKG ---
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1960 Requested By: Taras Brown Order Number: [id number] Reading MD: Taras Brown Measurements Intervals [place] Rate: 82 P: 18 [place]: 194 QRS: -36 QRSD: 93 T: 22 QT: 352 QTc: 411 Interpretive Statements Sinus rhythm Left axis deviation Low voltage, extremity leads Compared to ECG 03/19/2020 14:18:35 Left-axis deviation now present Low QRS voltage now present Myocardial infarct finding no longer present Electronically Signed On 03-21-2020 10:59:58 CDT by Taras Brown [email or web address] <ELECTRONICALLY SIGNED> By: Taras Brown MD, FAC 03/21/20 1059 9 9 Taras Brown MD, [facility] /EPI
--- NOTE | 2020-03-22 14:30 | EKG ---
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1960 Requested By: Taras Brown Order Number: [id number] Jennifer MD: Manpreet Calhoun Measurements Intervals [place] Rate: 84 P: 29 [place]: 194 QRS: -37 QRSD: 93 T: 29 QT: 340 QTc: 402 Interpretive Statements Sinus rhythm Left axis deviation Low voltage, extremity leads Consider inferior infarct Compared to ECG 03/20/2020 05:30:37 no change Electronically Signed On 03-22-2020 14:28:00 CDT by Manpreet Calhoun [email or web address] <ELECTRONICALLY SIGNED> By: Manpreet Calhoun MD, [facility] 03/22/20 1428 0753 [id number] Manpreet Calhoun MD, [facility] /EPI
== END 2020-03-20 12:40 | disposition home or self-care (01) ==
LOC: M.CL 07:48 → M.TBA-CV 11:40 → M.2W 15:37
PROVIDERS: ADMIT Internal Medicine
DX: I25.110 Atherosclerotic heart disease of native coronary artery with unstable angina pectoris (principal); I10 Essential (primary) hypertension; E78.5 Hyperlipidemia, unspecified; I48.0 Paroxysmal atrial fibrillation; E66.9 Obesity, unspecified; Z95.5 Presence of coronary angioplasty implant and graft